=== PATIENT | female | born 1955 | race American Indian/Alaskan Native ===

== ENCOUNTER 2021-02-05 10:30 | Emergency (ER) | payer MEDICARE ==
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
[2021-02-05 12:24] LABS: Basophils # (Auto) 0.1 K/mm3 (0.0-0.1); Basophils % (Auto) 0.7 % (0.0-1.8); Eosinophils # (Auto) 0.3 K/mm3 (0.0-0.4); Eosinophils % (Auto) 3.8 % (0.0-4.3); Hematocrit 34.6 % (30.3-42.9); Hemoglobin 11.7 gm/dl (10.1-14.3); Lymphocytes % (Auto) 28.5 % (13.4-35.0); Mean Corpuscular HGB Conc 34 % (30-34); Mean Corpuscular Volume 105 fl (79-97); Monocytes # (Auto) 0.6 K/mm3 (0.0-0.8); Monocytes % (Auto) 8.3 % (0.0-7.3); Platelet Count 306 K/mm3 (140-440); Red Blood Count 3.29 M/mm3 (3.65-5.03)
[2021-02-05 12:34] LABS: INR 1.31 (0.87-1.13); Partial Thromboplastin Time 27.3 Sec. (24.2-36.6)
[2021-02-05 12:45] LABS: Alanine Aminotransferase 59 units/L (7-56); Albumin 4.1 g/dL (3.9-5); Blood Urea Nitrogen 9 mg/dL (7-17); Calcium 9.1 mg/dL (8.4-10.2); Hemolysis Index 4
[2021-02-05 12:50] LABS: BUN/Creatinine Ratio 23
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
[2021-02-05] MEDS ORDERED: KETOROLAC 30 MG/1 ML INJ IV ONE (14:18)
--- NOTE | 2021-02-05 14:19 | Cat Scan Report ---
CT ABDOMEN AND PELVIS WITH CONTRAST HISTORY: Trauma FALL 3 DAYS AGO EOTH ABD PAIN 100 ML OMNI 300 COMPARISON: None available TECHNIQUE: Axial CT images were obtained through the abdomen and pelvis after 100 cc of IV contrast. Sagittal and coronal reformatted images. All CT scans at this location are performed using CT dose re duction for ALARA by means of automated exposure control. FINDINGS: CT ABDOMEN: Lung Bases: Clear. Liver: No significant abnormality. Biliary: No significant abnormality. Spleen: No significant abnormality. Unenlarged. Pancreas: No significant abnormality. Adrenals: No significant abnormality. Kidneys: No significant abnormality. Lymphatics: No lymphadenopathy. Vasculature: No significant abnormality. Bowel/Peritoneum: No significant abnormality. No free air. No free fluid. Normal appendix. CT PELVIS: : Hysterectomy changes are evident. The bladder is distended but no discrete filling defect or wall abnormality. Osseous Structures: Mild lumbar spondylosis. No acute osseous injury is detected. Additional Findings: There is mild thickening and fat stranding in the left inferior gluteal regions suggesting contusion or small intramuscular hematoma. IMPRESSION: No acute abdominal injury is appreciated. Soft tissue injury in the left gluteal region as described above. Signer Name: Rogelio Burch Jr, MD Signed: 02/05/2021 2:14 PM Workstation Name: [id number]
--- NOTE | 2021-02-05 14:24 | Cat Scan Report ---
CT HEAD WITHOUT CONTRAST INDICATION / CLINICAL INFORMATION: Trauma. Patient fell sustaining head injury. TECHNIQUE: All CT scans at this location are performed using CT dose reduction for ALARA by means of automated e xposure control. COMPARISON: Consistent with large 30 08/21/2018. More recent head CT dated 01/05/2019 cannot be retrieved for compar enrique to this interpretation. FINDINGS: HEMORRHAGE: No evidence of intracranial hemorrhage or extra-axial fluid collection. EXTRA-AXIAL SPACES: Cortical sulci and sylvian fissures are mildly enlarged reflecting a degree of pa renchymal volume loss which is somewhat greater than expected for the patient's age of 65 years. Basi lar cisterns have an unremarkable appearance. VENTRICULAR SYSTEM: The third and lateral ventricles are mildly enlarged reflecting presence parenchy mal volume loss. CEREBRAL PARENCHYMA: Mild periventricular and deep white matter lucency is observed. This is probably secondary to microvascular ischemic change. There is no indication of recent infarction. No areas of encephalomalacia are identified. MIDLINE SHIFT OR HERNIATION: There is no mass effect. CEREBELLUM / BRAINSTEM: Brainstem has an unremarkable appearance. Age related cerebellar atrophy is n oted. MIDLINE STRUCTURES:Pituitary gland has an unremarkable appearance. No abnormalities are seen in the p ineal region. INTRACRANIAL VESSELS:Calcified atherosclerotic plaque is present along the course of the cavernous se gments of both internal carotid arteries. ORBITS: visualized portions of the orbits have an unremarkable appearance. SOFT TISSUES of HEAD: No significant abnormality. CALVARIUM: Evaluation of bone windows reveals no abnormalities. PARANASAL SINUSES / MASTOID AIR CELLS: Paranasal sinuses are free from inflammatory mucosal disease. Mastoid air cells are normally pneumatized. IMPRESSION: 1. Mild parenchymal volume loss which is somewhat greater than expected for age 65 years. 2. No acute intracranial abnormality. No significant change in comparison to previous study. Signer Name: Ezio Hernandes MD Signed: 02/05/2021 2:19 PM Workstation Name: [id number]
--- NOTE | 2021-02-05 14:29 | Cat Scan Report ---
CT CERVICAL SPINE WITHOUT CONTRAST INDICATION / CLINICAL INFORMATION: Trauma. Patient fell sustaining neck injury. Neck pain. TECHNIQUE: Axial CT images were obtained through the cervical spine. Sagittal and coronal reformatted images wer e produced. All CT scans at this location are performed using CT dose reduction for ALARA by means of automated exposure control. COMPARISON: None available. FINDINGS: ALIGNMENT: No significant abnormality. There is no indication of traumatic subluxation. VERTEBRAE: No significant abnormality. There is no evidence of fracture. DISC SPACES: Disc height is decreased slightly at the C5-6 and C6-7 levels. DEGENERATIVE CHANGES:Mild uncovertebral arthritic changes seen on the right at the C5-6 and C6-7 leve ls. There is no indication of significant facet arthropathy. No evidence of central canal stenosis or neuroforaminal narrowing is observed. There is no indication of central canal stenosis or significan t neuroforaminal narrowing. CRANIOCERVICAL JUNCTION:No significant abnormality. SPINAL CANAL: Central spinal canal is adequately maintained throughout. PARASPINAL SOFT TISSUES: No significant abnormality. LUNG APICES: No significant abnormality of visualized lungs. IMPRESSION: 1. No indication of fracture or traumatic subluxation. Signer Name: Ezio Hernandes MD Signed: 02/05/2021 2:24 PM Workstation Name: [id number]
[2021-02-05] MEDS ORDERED: SODIUM CHLORIDE 0.9% 1000 ML 1,000 ML IV ONE (15:00)
[2021-02-05] MEDS ORDERED: PANTOPRAZOLE 40 MG INJ IV ONE (15:00)
[2021-02-05 17:15] VITALS: BP 128/72
== END 2021-02-05 17:16 | disposition home or self-care (01) ==
LOC: ED 10:30
DX: S30.0XXA Contusion of lower back and pelvis, initial encounter (principal); S00.90XA Unspecified superficial injury of unspecified part of head, initial encounter; F10.129 Alcohol abuse with intoxication, unspecified; R94.5 Abnormal results of liver function studies; I10 Essential (primary) hypertension; F17.200 Nicotine dependence, unspecified, uncomplicated; Z98.890 Other specified postprocedural states; Z79.899 Other long term (current) drug therapy; W18.39XA Other fall on same level, initial encounter; Y93.89 Activity, other specified; Y92.89 Other specified places as the place of occurrence of the external cause; Y99.8 Other external cause status; Y90.0 Blood alcohol level of less than 20 mg/100 ml
CPT/HCPCS: 36415; 70450; 71046; 72125; 73502; 74177; 80053; 85025; 85610; 85730; 96361; 96374; 96375; 99285; C9113; J1885; J7030; Q9967; 80320; G0480